=== PATIENT | female | born 1975 | race Caucasian/White ===

== ENCOUNTER 2021-06-21 10:06 | Emergency (ER) | payer OTHER ==
[~2021-06-21 10:06] MED LIST: ZOFRAN ODT 4 MG4 MG PO
[2021-06-21 12:09] LABS: HEMOGLOBIN 11.6 gm/dl (12.3-15.3); RED BLOOD COUNT 4.17 M/UL (4.00-5.10); WHITE BLOOD COUNT 11.7 K/UL (4.5-11.0)
[2021-06-21 12:37] LABS: BUN/CREATININE RATIO 9 (0-10)
[2021-06-21] MEDS ORDERED: K-DUR TAB 10 M10 MEQ PO (13:15)
== END 2021-06-21 14:00 | disposition home or self-care (01) ==
LOC: ER1 10:06
PROVIDERS: Student in an Organized Health Care Education/Training Program
DX: E87.6 Hypokalemia (principal)
CPT/HCPCS: 72170; 80053; 85025; 85379; 99285

== ENCOUNTER → 2022-04-11 | Outpatient (CLI) | payer OTHER ==
[~2022-04-11] MED LIST changes: +K-DUR TAB 10 M10 MEQ PO
== END ==
LOC: HEART 5 08:33
DX: R06.00 Dyspnea, unspecified (principal); R06.02 Shortness of breath
CPT/HCPCS: 71046; 94010; 94729; 95012

== ENCOUNTER 2022-04-13 19:10 | Emergency (ER) | payer OTHER ==
[2022-04-13 20:11] LABS: RED BLOOD COUNT 4.33 M/UL (4.00-5.10); WHITE BLOOD COUNT 18.5 K/UL (4.5-11.0)
[2022-04-13 20:49] LABS: BUN/CREATININE RATIO 8 (0-10)
== END 2022-04-13 22:44 | disposition home or self-care (01) ==
LOC: ER1 19:10
PROVIDERS: Physician Assistant
DX: R07.89 Other chest pain (principal); R06.02 Shortness of breath; E11.9 Type 2 diabetes mellitus without complications; I10 Essential (primary) hypertension; Z88.0 Allergy status to penicillin; Z88.5 Allergy status to narcotic agent; Z20.822 Contact with and (suspected) exposure to COVID-19
CPT/HCPCS: 0240U; 80053; 81001; 82550; 82553; 83690; 83735; 83880; 84484; 84703; 85025; 87086; 93005; 99285; Q9967